=== PATIENT | male | born 1990 | race African-American/Black ===

== ENCOUNTER 2016-06-11 05:07 | Emergency (ER) | payer OTHER ==
[~2016-06-11] VITALS: Ht 170.2 cm; Wt 99.8 kg
[2016-06-11 05:20] VITALS: BP 158/104
[2016-06-11] MEDS ORDERED: NAPROXEN 500 MG TABLET PO ONE (05:30)
--- NOTE | 2016-06-11 05:35 | PHYS DOC ---
Past Medical History Past Medical History: No Pertinent History Past Surgical History: No Surgical History Alcohol Use: None Drug Use: None Adult General Chief Complaint Chief Complaint: FINGER INJURY HPI HPI Patient is a 26 year old male who presents with finger injury. Patient reports he smashed his right index finger in his car door yesterday afternoon. No other injury. He took some Tylenol yesterday with insufficient relief. He presents today with complaint of continued pain in the finger. No other acute complaints. Review of Systems Review of Systems Constitutional: Denies fever or chills Respiratory: Denies cough or shortness of breath Cardiovascular: Denies chest pain GI: Denies abdominal pain, nausea, vomiting, or diarrhea Musculoskeletal: R index finger pain Neurologic: Denies headache, focal weakness or sensory changes Current Medications Current Medications Current Medications Medications (Trade) Dose Ordered Sig/Carla Start Time Stop Time Status Last Admin Dose Admin Naproxen (Naprosyn) 500 mg 1X ONCE 06/11/16 05:30 06/11/16 05:31 DC 06/11/16 05:29 500 MG Neomycin/ Polymyxin/ Bacitracin (Triple Antibiotic Ointment) 1 pkt 1X ONCE 06/11/16 06:30 06/11/16 06:31 DC 06/11/16 06:43 1 PKT Allergies Allergies Allergies Coded Allergies Type Severity Reaction Last Updated Verified No Known Drug Allergies 06/11/16 No Physical Exam Physical Exam Constitutional: Well developed, well nourished, no acute distress, non-toxic appearance HENT: Normocephalic, atraumatic Eyes: EOMI, conjunctiva normal, no discharge Neck: No stridor Pulmonary: No respiratory distress Skin: Warm, dry Neurologic: Alert and oriented X 3 Musculoskeletal: R index finger with subungual hematoma, no skin lesions noted. Finger generally TTP with no bony deformity noted; full active flexion and extension preserved; sensation to light touch intact, brisk cap refill Current Patient Data Vital Signs Vital Signs Date Time Temp Pulse Resp B/P Pulse Ox O2 Delivery O2 Flow Rate FiO2 06/11/16 05:20 98.0 94 16 96 Room Air 98.0 06/11/16 05:17 158/104 EKG EKG [] Radiology/Procedures Radiology/Procedures X-ray R hand fingers: IMPRESSION: No acute osseous finding. Course & Med Decision Making Course & Med Decision Making Pertinent Labs and Imaging studies reviewed. (See chart for details) Patient is 26-year-old male presents with right finger injury. Has subungual hematoma. X-ray ordered to rule out fracture, results as above. Naproxen ordered for pain control. Fingernail trephinated with electrocautery device; moderate amount of blood expressed, patient reports immediate relief from pain. Trephination will cover with antibiotic ointment and dressed. Discussed further treatment with patient. Patient discharged home with instructions for follow-up and return precautions. Dragon Disclaimer Dragon Disclaimer This electronic medical record was generated, in whole or in part, using a voice recognition dictation system. Departure Departure Impression: Primary Impression: Finger injury Additional Impression: Subungual hematoma Disposition: HOME, SELF-CARE Condition: IMPROVED Referrals: NO PCP (PCP) Patient Instructions: Subungual Hematoma Additional Instructions: Thank you for allowing us to provide care today in the Emergency Department. You can use acetaminophen, ibuprofen, or naproxen for any further pain. Follow the directions on the label. Keep your finger clean and dry. You can use antibiotic ointment over the hole that was made to drain the blood under your nail. Schedule a follow up appointment with your primary care doctor. Return promptly to the Emergency Department if you develop any new or concerning symptoms. Problem Qualifiers FALLON FARMER MD Jun 11, 2016 05:35
[2016-06-11] MEDS ORDERED: NEOMY/BACITR/POLYMYXIN OINT PACKET. TP ONE (06:30)
--- NOTE | 2016-06-11 07:13 | RAD ---
EXAM: Right second finger, 3 views. HISTORY: Pain. COMPARISON: None. FINDINGS: Frontal, lateral and oblique views of the right second finger are obtained. There is no fracture, dislocation or subluxation. No foreign body is seen. IMPRESSION: No acute osseous finding.
== END 2016-06-11 06:47 | disposition home or self-care (01) ==
LOC: ER 05:07
DX: S60.00XA Contusion of unspecified finger without damage to nail, initial encounter (principal); W23.0XXA Caught, crushed, jammed, or pinched between moving objects, initial encounter; Y93.89 Activity, other specified; Y99.8 Other external cause status; Y92.89 Other specified places as the place of occurrence of the external cause
CPT/HCPCS: 11740; 73140; 99284-25